=== PATIENT | female | born 1980 | race Caucasian/White ===

== ENCOUNTER 2024-11-20 04:07 | Emergency (ER) | payer MEDICAID ==
[~2024-11-20] VITALS: Ht 170.2 cm; Wt 73.0 kg
[2024-11-20 04:19] VITALS: BP 123/78; TEMP 98.7
[2024-11-20 06:30] VITALS: PULSE 94; RESP 18; O2SAT 97
[2024-11-20] MEDS: ALBUTEROL (0.083%) 2.5MG/3ML NEB HHN STA (06:30)
[2024-11-20] MEDS: IPRATROPIUM BROMIDE (0.02%) 0.5MG/2.5ML NEB HHN STA (06:30)
[2024-11-20] MEDS ORDERED: ALBU18HF2 IH (06:57)
== END 2024-11-20 07:43 | disposition home or self-care (01) ==
LOC: ER 04:28
DX: J20.9 Acute bronchitis, unspecified (principal)
CPT/HCPCS: 71045; 94640; 99283; Z7610 ×2

== ENCOUNTER 2025-04-26 14:11 | Emergency (ER) | payer MEDICAID, MEDICARE ==
[~2025-04-26] VITALS: Ht 157.5 cm; Wt 71.0 kg
[~2025-04-26 14:11] MED LIST: ALBU18HF2 IH
[2025-04-26 14:32] VITALS: O2SAT 100
[2025-04-26 15:05] LABS: CLARITY URINE CLEAR (CLEAR); COLOR URINE ORANGE (YELLOW); GLUCOSE URINE NEGATIVE (NEGATIVE); KETONES URINE NEGATIVE (NEGATIVE); LEUKOCYTE ESTERASE URINE TRACE (NEGATIVE); NITRITE URINE NEGATIVE (NEGATIVE); OCCULT BLOOD URINE 3+ (NEGATIVE); PROTEIN URINE TRACE (NEGATIVE); SPECIFIC GRAVITY URINE 1.013 (1.005-1.030); UROBILINOGEN URINE 0.2 E.U./dL (0.2-1.0)
[2025-04-26 15:12] LABS: BACTERIA URINE TRACE; RBC URINE TNTC /hpf (0-2); SQUAMOUS EPITHELIAL CELL URINE 2+ /lpf (RARE/1+); YEAST URINE NONE SEEN
[2025-04-26 16:06] LABS: BASOPHILS % 0.8 % (0.0-2.0); HEMATOCRIT. 35.1 % (36.0-48.0); HEMOGLOBIN. 11.6 g/dL (12.0-16.0); LYMPHOCYTES % 30.6 % (20.0-50.0); MEAN CORPUSCULAR HEMOGLOBIN 27.9 pg (28.0-32.0); MEAN CORPUSCULAR HGB CONC 32.9 g/dL (31.0-37.0); MEAN CORPUSCULAR VOLUME 84.7 fL (81.0-99.0); MEAN PLATELET VOLUME 7.9 fl (7.4-10.4); NEUTROPHILS % 60.6 % (40.0-76.0); PLATELET 310 x1000/uL (130-400); RED BLOOD CELL COUNT 4.15 mill/uL (4.2-5.4); RED CELL DISTRIBUTION WIDTH 12.8 % (11.6-14.6); WHITE BLOOD COUNT 6.2 x1000/uL (4.5-11.0)
[2025-04-26 16:17] LABS: CHLORIDE 106 mEq/L (98-107); HCG SCREEN POSITIVE; POTASSIUM 4.1 mEq/L (3.5-5.1); SODIUM 138 mEq/L (136-145)
[2025-04-26 16:18] LABS: CALCIUM 9.4 mg/dL (8.7-10.4); CARBON DIOXIDE 24 mEq/L (21-32)
[2025-04-26 16:23] LABS: CREATININE 0.7 mg/dL (0.6-1.0); GLUCOSE 95 mg/dL (70-105); UREA NITROGEN BLOOD 6 mg/dL (9-23)
[2025-04-26 16:44] LABS: B-HCG QUANTITATIVE 10802 mIU/mL (<6)
[2025-04-26 17:01] VITALS: BP 101/59; PULSE 78; RESP 16; TEMP 36.9; O2SAT 98
== END 2025-04-26 17:03 | disposition home or self-care (01) ==
LOC: ER 14:11
DX: O02.1 Missed abortion (principal); J45.909 Unspecified asthma, uncomplicated; Z79.899 Other long term (current) drug therapy
CPT/HCPCS: 36415; 76801; 80048; 81003; 84702; 84703; 85025; 86850; 86900; 99284